=== PATIENT | female | born 1950 | race Caucasian/White ===

== ENCOUNTER → 2017-11-27 | Outpatient (CLI) | payer OTHER, MEDICARE ==
[~2017-11-27] MED LIST: LIDOCAINE 1% 300 MG/30 ML SDV ONE
== END ==
LOC: FIMAGING 12:05
PROVIDERS: ATTEND Otolaryngology
PROC: 0C993ZX Drainage of Left Parotid Gland, Percutaneous Approach, Diagnostic (ICD-10-PCS; principal; 2017-11-27)
DX: D11.0 Benign neoplasm of parotid gland (principal); Z85.3 Personal history of malignant neoplasm of breast